=== PATIENT | female | born 2000 | race Caucasian/White ===

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

== ENCOUNTER 2019-01-17 09:05 | Emergency (ER) | payer BC ==
[2019-01-17 09:21] VITALS: BP 106/51
--- NOTE | 2019-01-17 12:28 | EDM.PDOC ---
ED HPI GENERAL MEDICAL PROBLEM - General Chief Complaint: Respiratory Problem Stated Complaint: SOB COUGH Time Seen by Provider: 01/17/19 09:08 Source of Information: Reports: Patient History Limitations: Reports: No Limitations - History of Present Illness INITIAL COMMENTS - FREE TEXT/NARRATIVE: This 18-year-old [place]ip[place], LMP was end of November, uses Nexplanon for contraception, has one-week duration sore throat slight cough congestion shortness of breath. No history of viral influenza shots. throat Pain Score (Numeric/FACES): 4 - Related Data Allergies Allergy/AdvReac Type Severity Reaction Status Date / Time No Known Allergies Allergy Verified 01/17/19 09:19 Home Meds: Home Meds Etonogestrel [Nexplanon] 1 dose SQ ASDIRECTED 08/07/18 [History] Past Medical History - Past Health History Medical/Surgical History: Denies Medical/Surgical History - Past Surgical History HEENT Surgical History: Reports: Tonsillectomy Social & Family History - Family History Family Medical History: Noncontributory - Tobacco Use Smoking Status *Q: Never Smoker Second Hand Smoke Exposure: No - Caffeine Use Caffeine Use: Reports: Coffee, Soda - Recreational Drug Use Recreational Drug Use: No ED ROS GENERAL - Review of Systems Review Of Systems: ROS reveals no pertinent complaints other than HPI. ED EXAM, GENERAL - Physical Exam Exam: See Below Free Text/Narrative:: Pleasant 18-year-old in mild distress Exam Limited By: No Limitations General Appearance: Alert, WD/WN, Mild Distress Eye Exam: Bilateral Eye: Normal Inspection Ear Exam: Bilateral Ear: Auricle Normal, Canal Normal, TM normal Nose: Normal Inspection Throat/Mouth: Normal Inspection, Normal Lips, Normal Teeth, Normal Gums, Normal Voice, No Airway Compromise, Other (Pharyngeal erythema mild) Neck: Normal Inspection, Supple, Non-Tender, Full Range of Motion, Other (No cervical adenopathy) Respiratory/Chest: No Respiratory Distress, Lungs Clear, Normal Breath Sounds, No Accessory Muscle Use, Chest Non-Tender Cardiovascular: Normal Peripheral Pulses, Regular Rate, Rhythm, No Edema, No Gallop, No JVD, No Murmur, No Rub Peripheral Pulses: 1+: Radial (L), Radial (R) GI/Abdominal: Normal Bowel Sounds, Soft, Non-Tender, No Organomegaly, No Distention, No Abnormal Bruit, No Mass (Female) Exam: Deferred Rectal (Female) Exam: Deferred Extremities: Normal Inspection, Normal Range of Motion, Non-Tender, No Pedal Edema, Normal Capillary Refill Neurological: Alert, Oriented, CN II-XII Intact, Normal Cognition, Normal Gait, Normal Reflexes, No Motor/Sensory Deficits Psychiatric: Normal Affect, Normal Mood Skin Exam: Warm, Dry, Intact, Normal Color Lymphatic: No Adenopathy Course - Vital Signs Last Recorded V/S: Last Vital Signs Temp 36.6 C 01/17/19 09:10 Pulse 86 01/17/19 09:10 Resp 17 01/17/19 09:10 BP 106/51 L 01/17/19 09:10 Pulse Ox 100 01/17/19 09:10 - Orders/Labs/Meds Orders: Active Orders 24 hr Category Date Time Status CULTURE STREP A CONFIRMATION [RM] Stat Lab 01/17/19 09:23 Results STREP SCRN A RAPID W CULT CONF [RM] Stat Lab 01/17/19 09:23 Results Departure - Departure Time of Disposition: 09:40 (Viral upper restaurant infection) Disposition: Home, Self-Care 01 Condition: Good Clinical Impression: Viral URI - Discharge Information *PRESCRIPTION DRUG MONITORING PROGRAM REVIEWED*: Not Applicable *COPY OF PRESCRIPTION DRUG MONITORING REPORT IN PATIENT LINDSAY: Not Applicable Instructions: Viral Illness, Adult Referrals: Jay Walker MD [Primary Care Provider] - Forms: ED Department Discharge Additional Instructions: May take Tylenol 1000mg and Ibuprofen 600 mg every 6 hours as needed for bodyaches and fever. Follow up with Primary Care Doctor as needed. May call for questions of come back if symptoms get acutely worse. - My Orders Last 24 Hours: My Active Orders 01/17/19 09:23 CULTURE STREP A CONFIRMATION [RM] Stat STREP SCRN A RAPID W CULT CONF [RM] Stat - Assessment/Plan Last 24 Hours: My Active Orders 01/17/19 09:23 CULTURE STREP A CONFIRMATION [RM] Stat STREP SCRN A RAPID W CULT CONF [RM] Stat
== END 2019-01-17 10:10 | disposition home or self-care (01) ==
LOC: FB.ED 09:05
DX: J06.9 Acute upper respiratory infection, unspecified (principal)
CPT/HCPCS: 87081; 87804; 87804-59; 87880-QW; 99283

== ENCOUNTER 2020-01-30 01:53 | Emergency (ER) | payer BC ==
[2020-01-30] MEDS ORDERED: Ondansetron 4 MG Tab.DIS PO ONE (01:54)
[2020-01-30] MEDS ORDERED: Ondansetron 4 MG/2 ML SDV IVPUSH ONE (02:08)
[2020-01-30] MEDS ORDERED: Sodium Chloride 0.9% 1,000 ML IV ONE (02:08)
--- NOTE | 2020-01-30 03:32 | EDM.PDOC ---
ED HPI GENERAL MEDICAL PROBLEM - General Chief Complaint: Abdominal Pain Stated Complaint: VOMITING; DIARHEA Time Seen by Provider: 01/30/20 03:29 Source of Information: Reports: Patient History Limitations: Reports: No Limitations - History of Present Illness INITIAL COMMENTS - FREE TEXT/NARRATIVE: Presents with N/V/D and crampy abdominal pain x 14 hours. No sick contacts, no recent travel. Denies prior h/o abdominal surgeries. Duration: Hour(s): (14) Location: Reports: Abdomen mid abd Pain Score (Numeric/FACES): 5 - Related Data Allergies Allergy/AdvReac Type Severity Reaction Status Date / Time No Known Allergies Allergy Verified 01/17/19 09:19 Home Meds: Home Meds Etonogestrel [Nexplanon] 1 dose SQ ASDIRECTED 08/07/18 [History] Past Medical History - Past Health History Medical/Surgical History: Denies Medical/Surgical History - Past Surgical History HEENT Surgical History: Reports: Tonsillectomy Social & Family History - Family History Family Medical History: Noncontributory - Tobacco Use Smoking Status *Q: Never Smoker - Caffeine Use Caffeine Use: Reports: Coffee, Soda ED ROS GENERAL - Review of Systems Review Of Systems: Comprehensive ROS is negative, except as noted in HPI. ED EXAM, GI/ABD - Physical Exam Exam: See Below Exam Limited By: No Limitations General Appearance: Alert, WD/WN, No Apparent Distress Ears: Normal External Exam Throat/Mouth: No Airway Compromise Head: Atraumatic, Normocephalic Neck: Full Range of Motion Respiratory/Chest: No Respiratory Distress, Lungs Clear, Normal Breath Sounds Cardiovascular: Regular Rate, Rhythm, No Murmur GI/Abdominal Exam: Normal Bowel Sounds, Soft, Non-Tender, No Distention Back Exam: Full Range of Motion Extremities: Normal Inspection Neurological: Alert, No Motor/Sensory Deficits Psychiatric: Normal Affect, Normal Mood Skin Exam: Warm, Dry, Intact Course - Vital Signs Last Recorded V/S: Last Vital Signs Temp 36.6 C 01/30/20 01:53 Pulse 112 H 01/30/20 01:53 Resp 17 01/30/20 01:53 BP 102/65 01/30/20 01:53 Pulse Ox 98 01/30/20 01:53 - Orders/Labs/Meds Labs: Laboratory Tests 01/30/20 01/30/20 01/30/20 Range/Units 02:12 02:12 02:23 WBC 13.4 H (4.5-12.0) X10-3/uL RBC 5.13 (3.23-5.20) x10(6)uL Hgb 15.6 H (11.5-15.5) g/dL Hct 46.8 (30.0-51.3) % MCV 91.3 (80-96) fL MCH 30.5 (27.7-33.6) pg MCHC 33.4 (32.2-35.4) g/dL RDW 13.0 (11.5-15.5) % Plt Count 369 (125-369) X10(3)uL MPV 8.3 (7.4-10.4) fL Add Manual Diff Yes Neutrophils % (Manual) 89 H (46-82) % Band Neutrophils % 1 (0-6) % Lymphocytes % (Manual) 8 L (13-37) % Monocytes % (Manual) 2 L (4-12) % Sodium (135-145) mmol/L Potassium (3.5-5.3) mmol/L Chloride (100-110) mmol/L Carbon Dioxide (21-32) mmol/L BUN (7-18) mg/dL Creatinine (0.55-1.02) mg/dL Est Cr Clr Drug Dosing mL/min Estimated GFR (MDRD) (>60) BUN/Creatinine Ratio (9-20) Glucose (80-116) mg/dL Calcium (8.6-10.2) mg/dL Total Bilirubin (0.1-1.3) mg/dL AST (5-25) IU/L ALT (12-36) U/L Alkaline Phosphatase (56-112) IU/L Total Protein (6.0-8.0) g/dL Albumin (3.5-5.2) g/dL Globulin g/dL Albumin/Globulin Ratio Lipase (73-393) U/L Urine Color Yellow (YELLOW) Urine Appearance Slightly cloudy (CLEAR) Urine pH 5.0 (5.0-6.5) Ur Specific [place] 1.020 (1.010-1.025) Urine Protein 30 H (NEGATIVE) mg/dL Urine Glucose (UA) Normal (NORMAL) mg/dL Urine Ketones 15 H (NEGATIVE) mg/dL Urine Occult Blood Negative (NEGATIVE) Urine Nitrite Negative (NEGATIVE) Urine Bilirubin Negative (NEGATIVE) Urine Urobilinogen Normal (NEGATIVE) mg/dL Ur Leukocyte Esterase Small H (NEGATIVE) Urine RBC 0-5 (0-5) Urine WBC 0-5 (0-5) Ur Squamous Epith Cells Few H (NS,R,O) Amorphous Sediment Few Urine Bacteria Few H (NS) Urine Mucus Few H (NS) Urine HCG, Qual Negative (NEGATIVE) 01/30/20 01/30/20 Range/Units 02:23 02:23 WBC (4.5-12.0) X10-3/uL RBC (3.23-5.20) x10(6)uL Hgb (11.5-15.5) g/dL Hct (30.0-51.3) % MCV (80-96) fL MCH (27.7-33.6) pg MCHC (32.2-35.4) g/dL RDW (11.5-15.5) % Plt Count (125-369) X10(3)uL MPV (7.4-10.4) fL Add Manual Diff Neutrophils % (Manual) (46-82) % Band Neutrophils % (0-6) % Lymphocytes % (Manual) (13-37) % Monocytes % (Manual) (4-12) % Sodium 142 (135-145) mmol/L Potassium 4.1 (3.5-5.3) mmol/L Chloride 104 (100-110) mmol/L Carbon Dioxide 24 (21-32) mmol/L BUN 13 (7-18) mg/dL Creatinine 0.8 (0.55-1.02) mg/dL Est Cr Clr Drug Dosing 92.79 mL/min Estimated GFR (MDRD) > 60 (>60) BUN/Creatinine Ratio 16.3 (9-20) Glucose 135 H (80-116) mg/dL Calcium 8.9 (8.6-10.2) mg/dL Total Bilirubin 1.3 (0.1-1.3) mg/dL AST 17 (5-25) IU/L ALT 40 H (12-36) U/L Alkaline Phosphatase 102 (56-112) IU/L Total Protein 8.5 H (6.0-8.0) g/dL Albumin 3.8 (3.5-5.2) g/dL Globulin 4.7 g/dL Albumin/Globulin Ratio 0.8 Lipase 66 L (73-393) U/L Urine Color (YELLOW) Urine Appearance (CLEAR) Urine pH (5.0-6.5) Ur Specific [place] (1.010-1.025) Urine Protein (NEGATIVE) mg/dL Urine Glucose (UA) (NORMAL) mg/dL Urine Ketones (NEGATIVE) mg/dL Urine Occult Blood (NEGATIVE) Urine Nitrite (NEGATIVE) Urine Bilirubin (NEGATIVE) Urine Urobilinogen (NEGATIVE) mg/dL Ur Leukocyte Esterase (NEGATIVE) Urine RBC (0-5) Urine WBC (0-5) Ur Squamous Epith Cells (NS,R,O) Amorphous Sediment Urine Bacteria (NS) Urine Mucus (NS) Urine HCG, Qual (NEGATIVE) Meds: Medications Discontinued Medications Generic Name Dose Route Start Last Admin Trade Name Freq PRN Reason Stop Dose Admin Sodium Chloride 1,000 mls @ 999 mls/hr 01/30/20 02:08 01/30/20 02:20 Normal Saline IV 01/30/20 03:08 999 mls/hr .BOLUS ONE Administration Ondansetron HCl 4 mg 01/30/20 02:08 01/30/20 02:31 Zofran IVPUSH 01/30/20 02:09 4 mg ONETIME ONE Administration - Re-Assessments/Exams Free Text/Narrative Re-Assessment/Exam: 01/30/20 03:31 Symptoms improved after Zofran 4mg IV. 01/30/20 03:52 Discharged with Zofran starter pack. Departure - Departure Time of Disposition: 03:51 Disposition: Home, Self-Care 01 Condition: Good Clinical Impression: Gastroenteritis - Discharge Information *PRESCRIPTION DRUG MONITORING PROGRAM REVIEWED*: No *COPY OF PRESCRIPTION DRUG MONITORING REPORT IN PATIENT LINDSAY: Not Applicable Instructions: Viral Gastroenteritis, Adult Referrals: Bertram Armstrong MD [Primary Care Provider] - Forms: ED Department Discharge Additional Instructions: Take Zofran as directed. Drink plenty of clear fluids, advance as tolerated. Follow up in 3 days if symptoms don't improve. Return to the ER if symptoms worsen. Sepsis Event Note - Evaluation Sepsis Screening Result: No Definite Risk - Focused Exam Vital Signs: Vital Signs Temp Pulse Resp BP Pulse Ox 01/30/20 01:53 36.6 C 112 H 17 102/65 98 Date Exam was Performed: 01/30/20 Time Exam was Performed: 03:51
[2020-01-30 04:06] VITALS: BP 111/61; PULSE 80
== END 2020-01-30 04:00 | disposition home or self-care (01) ==
LOC: FB.ED 01:53
DX: K52.9 Noninfective gastroenteritis and colitis, unspecified (principal)
CPT/HCPCS: 36415; 80053; 81001; 81025; 83690; 85025; 96361; 96374; 99284; A9270; J2405; J7030

== ENCOUNTER 2021-11-03 12:27 | Emergency (ER) | payer BC ==
--- NOTE | 2021-11-03 12:34 | EDM.PDOC ---
ED HPI GENERAL MEDICAL PROBLEM - General Stated Complaint: CONSTIPATED Time Seen by Provider: 11/03/21 12:41 Source of Information: Reports: Patient, RN Notes Reviewed - History of Present Illness INITIAL COMMENTS - FREE TEXT/NARRATIVE: 21 yo F with h/o constipation who presented to the ER with h/o inability to pass stool and worsening constipation. Started few days ago and got progressively worse. No fever, chills or abdominal pain. NO urinary symptoms. Tried some bowel regimen without any [place] Associated Symptoms: Reports: No Other Symptoms - Related Data Allergies Allergy/AdvReac Type Severity Reaction Status Date / Time No Known Allergies Allergy Verified 01/17/19 09:19 Home Meds: Home Meds Etonogestrel [Nexplanon] 1 dose SQ ASDIRECTED 08/07/18 [History] Past Medical History - Past Health History Medical/Surgical History: Denies Medical/Surgical History - Past Surgical History HEENT Surgical History: Reports: Tonsillectomy Social & Family History - Family History Family Medical History: No Pertinent Family History - Caffeine Use Caffeine Use: Reports: Coffee, Soda ED ROS GENERAL - Review of Systems Review Of Systems: See Below Constitutional: Reports: No Symptoms HEENT: Reports: No Symptoms Respiratory: Reports: No Symptoms Cardiovascular: Reports: No Symptoms Endocrine: Reports: No Symptoms GI/Abdominal: Reports: Constipation : Reports: No Symptoms Musculoskeletal: Reports: No Symptoms Skin: Reports: No Symptoms Neurological: Reports: No Symptoms Psychiatric: Reports: No Symptoms Hematologic/Lymphatic: Reports: No Symptoms Immunologic: Reports: No Symptoms ED EXAM, GENERAL - Physical Exam Exam: See Below Exam Limited By: No Limitations General Appearance: Alert, WD/WN, No Apparent Distress Ears: Normal External Exam, Normal Canal, Hearing Grossly Normal, Normal TMs Ear Exam: Bilateral Ear: Auricle Normal, Canal Normal, TM normal Nose: Normal Inspection, Normal Mucosa, No Blood Throat/Mouth: Normal Inspection, Normal Lips, Normal Teeth, Normal Gums, Normal Oropharynx, Normal Voice, No Airway Compromise Head: Atraumatic, Normocephalic Neck: Normal Inspection, Supple, Non-Tender, Full Range of Motion Respiratory/Chest: No Respiratory Distress, Lungs Clear, Normal Breath Sounds, No Accessory Muscle Use, Chest Non-Tender Cardiovascular: Normal Peripheral Pulses, Regular Rate, Rhythm, No Edema, No Gallop, No JVD, No Murmur, No Rub GI/Abdominal: Normal Bowel Sounds, Soft, Non-Tender, No Organomegaly, No Distention, No Abnormal Bruit, No Mass Extremities: Normal Inspection, Normal Range of Motion, Non-Tender, Normal Capillary Refill, No Pedal Edema Neurological: Alert, Oriented, CN II-XII Intact, Normal Cognition, Normal Gait, Normal Reflexes, No Motor/Sensory Deficits Psychiatric: Normal Affect, Normal Mood Skin Exam: Warm, Dry, Intact, Normal Color, No Rash Lymphatic: No Adenopathy Course - Vital Signs Last Recorded V/S: Last Vital Signs Temp 36.8 C 11/03/21 12:27 Pulse 91 11/03/21 12:27 Resp 18 11/03/21 12:27 BP 117/59 L 11/03/21 12:27 Pulse Ox 97 11/03/21 12:27 - Orders/Labs/Meds Orders: Active Orders 24 hr Category Date Time Status Abdomen 1V Flat [CR] Stat Exams 11/03/21 12:36 Taken Meds: Medications Discontinued Medications Generic Name Dose Route Start Last Admin Trade Name [place] PRN Reason Stop Dose Admin Magnesium Hydroxide 30 ml 11/03/21 12:37 11/03/21 12:41 Magnesium Hydroxide 400 Mg/5 Ml Susp 30 Ml Cup PO 11/03/21 12:38 30 ml ONETIME ONE Administration Departure - Departure Time of Disposition: 13:39 Disposition: DC/Tfer to Medicaid [facility] 64 Condition: Good Clinical Impression: Constipation - Discharge Information *PRESCRIPTION DRUG MONITORING PROGRAM REVIEWED*: No *COPY OF PRESCRIPTION DRUG MONITORING REPORT IN PATIENT LINDSAY: No Instructions: Chronic Constipation Referrals: Bertram Armstrong MD [Primary Care Provider] - Sepsis Event Note (ED) - Focused Exam Vital Signs: Vital Signs Temp Pulse Resp BP Pulse Ox 11/03/21 12:27 36.8 C 91 18 117/59 L 97 - My Orders Last 24 Hours: My Active Orders 11/03/21 12:36 Abdomen 1V Flat [CR] Stat - Assessment/Plan Last 24 Hours: My Active Orders 11/03/21 12:36 Abdomen 1V Flat [CR] Stat
[2021-11-03] MEDS ORDERED: Magnesium Hydroxide 400 MG/5 ML Susp 30 ML Cup PO ONE (12:37)
[2021-11-03 13:55] VITALS: BP 114/75; PULSE 81
== END 2021-11-03 13:50 | disposition home or self-care (01) ==
LOC: FB.ED 12:27
DX: K59.00 Constipation, unspecified (principal)
CPT/HCPCS: 74018; 99284; A9270-GY

== ENCOUNTER 2021-12-24 00:22 | Emergency (ER) | payer SELFPAY ==
[2021-12-24] MEDS ORDERED: Ondansetron 4 MG Tab.DIS PO ONE (00:23)
[2021-12-24 00:35] VITALS: BP 144/94; PULSE 71
[2021-12-24] MEDS ORDERED: Lactated Ringers 1,000 ML IV ONE (00:50)
[2021-12-24] MEDS ORDERED: Loperamide 2 MG Cap PO ONE (00:51)
[2021-12-24] MEDS ORDERED: Prochlorperazine 10 MG/2 ML SDV IVPUSH ONE (00:51)
== END 2021-12-24 02:15 | disposition home or self-care (01) ==
LOC: FB.ED 00:22
DX: A08.4 Viral intestinal infection, unspecified (principal)
CPT/HCPCS: 96374; 99283-25; A9270-GY; J0780; J7120; Q0162

== ENCOUNTER 2023-08-12 19:24 | Emergency (ER) | payer BC ==
[2023-08-12] MEDS ORDERED: Acetaminophen 500 MG Tab PO ONE (19:56)
[2023-08-12] MEDS ORDERED: Cyclobenzaprine 10 MG Tab PO ONE (19:56)
[2023-08-12] MEDS ORDERED: Ibuprofen 800 MG Tab PO ONE (19:56)
[2023-08-12 22:26] VITALS: BP 122/75; PULSE 71
== END 2023-08-12 21:30 | disposition home or self-care (01) ==
LOC: FB.ED 19:24
DX: S93.401A Sprain of unspecified ligament of right ankle, initial encounter (principal); S93.601A Unspecified sprain of right foot, initial encounter; Z79.899 Other long term (current) drug therapy; X50.0XXA Overexertion from strenuous movement or load, initial encounter
CPT/HCPCS: 73610; 73630; 99283; A9270

== ENCOUNTER 2024-06-23 19:44 | Emergency (ER) | payer BC ==
[2024-06-23 20:00] VITALS: BP 111/67; PULSE 98
== END 2024-06-23 21:29 | disposition home or self-care (01) ==
LOC: FB.ED 19:44
DX: S83.92XA Sprain of unspecified site of left knee, initial encounter (principal); Z79.899 Other long term (current) drug therapy; X58.XXXA Exposure to other specified factors, initial encounter
CPT/HCPCS: 73562-LT; 99283